=== PATIENT | male | born 1970 | race Hispanic/Latino ===

== ENCOUNTER 2017-02-04 10:21 | Observation (INO) | payer SELFPAY ==
[~2017-02-04] VITALS: Ht 154.9 cm; Wt 84.5 kg
[~2017-02-04 10:21] MED LIST: CIPROFLOXACN500 MG PO; TOBREX OPTH DROP5 ML OS; TYLENOL500 MG OR
[2017-02-04 10:52] LABS: HEMATOCRIT 40.4 % (39.0-50.0); HEMOGLOBIN 15.3 g/dl (14.0-18.0); IMMATURE GRANULOCYTES 0.4 % (0.0-1.0); MEAN CELL VOLUME 91.4 fL CALC (80.0-100.0); MEAN CORPUSCULAR HGB 34.6 pG CALC (26.0-32.0); MEAN CORPUSCULAR HGB CONC 37.9 g/L CALC (32.0-36.0); NEUT# 3.64 thou/uL (1.82-7.42); RED BLOOD COUNT 4.42 mill/uL (4.70-6.10); RED CELL DISTRI WIDTH 11.9 % (11.5-15.5)
[2017-02-04 11:16] LABS: ALBUMIN 4.3 g/dL (3.2-5.0); ALKALINE PHOSPHATASE 73 u/l (38-126); ANION GAP 16 (6-22 (CALC)); BUN 11 mg/dL (9-20); BUN/CREATININE RATIO 20 (12-20 (CALC)); CALCIUM 8.7 mg/dL (8.4-10.2); CARBON DIOXIDE 25 mmol/l (22-30); CHLORIDE 103 mmol/l (95-108); CREATININE 0.6 mg/dL (0.7-1.3); GFR > 60 ML/MIN (>=60 (CALC)); GFR FOR AFR.AMER. > 60 ML/MIN (>=60 (CALC)); GLUCOSE 107 mg/dL (75-110); POTASSIUM 3.6 mmol/l (3.5-5.1); SGOT/AST 62 u/l (17-59); SGPT/ALT 64 u/l (21-72); SODIUM 140 mmol/l (137-146); TOTAL PROTEIN 7.9 g/dL (6.3-8.2)
[2017-02-04 11:26] LABS: MYOGLOBIN 23 ng/mL (0 - 121)
[2017-02-04 14:27] VITALS: BP 123/77
[2017-02-04 16:00] VITALS: BP 110/76
[2017-02-04 19:05] VITALS: BP 120/75
[2017-02-05 00:10] VITALS: BP 119/74
[2017-02-05 04:59] VITALS: BP 117/82
[2017-02-05 08:00] VITALS: BP 114/73
[2017-02-05] MEDS ORDERED: ASPIRIN LOW DOS81 MG PO (08:28)
== END 2017-02-05 11:40 | disposition home or self-care (01) | DRG 313 ==
LOC: ENPENDDIS → ED 10:21 → ED-I 11:42 → ED 12:19 → MS2 12:20
PROVIDERS: Emergency Medicine; ADMIT Internal Medicine; ATTEND Internal Medicine
DX: R07.2 Precordial pain (principal); E80.6 Other disorders of bilirubin metabolism; R74.0 Nonspecific elevation of levels of transaminase and lactic acid dehydrogenase [LDH]
CPT/HCPCS: G0378

== ENCOUNTER 2019-04-06 23:13 | Emergency (ER) | payer SELFPAY ==
[~2019-04-06] VITALS: Ht 162.6 cm; Wt 90.0 kg
[~2019-04-06 23:13] MED LIST changes: +ASPIRIN LOW DOS81 MG PO
[2019-04-06 23:54] LABS: URINE BILIRUBIN - DIPSTICK NEGATIVE (NEGATIVE); URINE BLOOD DIPSTICK TRACE-INTACT (NEGATIVE); URINE COLOR YELLOW; URINE GLUCOSE - DIPSTICK NEGATIVE (NEGATIVE); URINE KETONE NEGATIVE (NEGATIVE); URINE NITRITE - DIPSTICK NEGATIVE (Negative); URINE PH 6.5 (4.5-8.0); URINE PROTEIN - DIPSTICK NEGATIVE (NEG-TRACE); URINE UROBILINOGEN - DIPSTICK 0.2 E.U./dL (0.2)
[2019-04-06 23:56] LABS: URINE LEUK ESTERASE SMALL (NEGATIVE)
[2019-04-07 00:07] LABS: ALBUMIN 4.1 g/dL (3.2-5.0); ALKALINE PHOSPHATASE 79 u/l (38-126); ANION GAP 13 (6-22 (CALC)); BILIRUBIN, TOTAL 3.3 mg/dL (0.0-1.4); BUN 6 mg/dL (9-20); BUN/CREATININE RATIO 11 (12-20 (CALC)); CARBON DIOXIDE 26 mmol/l (22-30); CHLORIDE 105 mmol/l (95-108); CREATININE 0.5 mg/dL (0.7-1.3); GFR > 60 ML/MIN (>=60 (CALC)); GFR FOR AFR.AMER. > 60 ML/MIN (>=60 (CALC)); LIPASE 92 u/l (23-300); POTASSIUM 3.4 mmol/l (3.5-5.1); SGOT/AST 60 u/l (17-59); SODIUM 141 mmol/l (137-146); TOTAL PROTEIN 7.6 g/dL (6.3-8.2)
[2019-04-07 00:09] LABS: AMYLASE < 30 u/l (30-110)
[2019-04-07 00:11] LABS: URINE RBC 0-2 RBC/hpf (0-5)
[2019-04-07 00:17] LABS: HEMATOCRIT 38.3 % (39.0-50.0); HEMOGLOBIN 14.3 g/dl (14.0-18.0); IMMATURE GRANULOCYTES 0.4 % (0.0-5.0); MEAN CELL VOLUME 93.9 fL CALC (80.0-100.0); MEAN CORPUSCULAR HGB CONC 37.3 g/L CALC (32.0-36.0); NEUT# 9.81 thou/uL (1.82-7.42); RED BLOOD COUNT 4.08 mill/uL (4.70-6.10); RED CELL DISTRI WIDTH 12.5 % (11.5-15.5)
[2019-04-07] MEDS ORDERED: LOMOTIL2.5 MG PO (01:20)
[2019-04-07 01:37] VITALS: BP 121/63
== END 2019-04-07 01:45 | disposition home or self-care (01) | DRG 392 ==
LOC: ED 23:13
PROVIDERS: Family Medicine
DX: R10.33 Periumbilical pain (principal); R19.7 Diarrhea, unspecified; R74.8 Abnormal levels of other serum enzymes; R50.9 Fever, unspecified; R51 Headache; R11.0 Nausea

== ENCOUNTER 2020-04-13 10:47 | Inpatient (IN) | payer SELFPAY ==
[~2020-04-13] VITALS: Ht 165.1 cm; Wt 82.2 kg
[~2020-04-13 10:47] MED LIST changes: +LOMOTIL2.5 MG PO
--- NOTE | 2020-04-13 11:00 | NUR ---
PT CHANGED TO GOWN. MONITORS PLACED. BLOCK SAWYER PRESENT PT REPORTS ABDOMINAL PAIN FOR TWO DAYS. PT AO X 3. SKIN PINK WARM AND DRY.
--- NOTE | 2020-04-13 11:30 | NUR ---
PT VOIDED 50 ML CLEAR YELLOW URINE. SPECIMEN SENT TO LAB
--- NOTE | 2020-04-13 11:36 | NUR ---
PT MEDICATED FOR NAUSEA AND PAIN
[2020-04-13 11:42] LABS: URINE BILIRUBIN - DIPSTICK NEGATIVE (NEGATIVE); URINE BLOOD DIPSTICK TRACE-INTACT (NEGATIVE); URINE COLOR YELLOW; URINE GLUCOSE - DIPSTICK NEGATIVE (NEGATIVE); URINE KETONE NEGATIVE (NEGATIVE); URINE LEUK ESTERASE NEGATIVE (NEGATIVE); URINE NITRITE - DIPSTICK NEGATIVE (Negative); URINE PROTEIN - DIPSTICK 30 mg/dL (NEG-TRACE); URINE SPECIFIC GRAVITY 1.025; URINE UROBILINOGEN - DIPSTICK 0.2 E.U./dL (0.2)
[2020-04-13 11:46] LABS: HEMATOCRIT 40.5 % (39.0-50.0); HEMOGLOBIN 14.8 g/dl (14.0-18.0); IMMATURE GRANULOCYTES 0.4 % (0.0-5.0); MEAN CORPUSCULAR HGB 35.1 pG CALC (26.0-32.0); MEAN CORPUSCULAR HGB CONC 36.5 g/dL CAL (32.0-36.0); NEUT# 5.91 thou/uL (1.82-7.42); RED BLOOD COUNT 4.22 mill/uL (4.70-6.10); RED CELL DISTRI WIDTH 11.9 % (11.5-15.5)
[2020-04-13 11:59] LABS: ALBUMIN 4.1 g/dL (3.2-5.0); ALKALINE PHOSPHATASE 67 u/l (38-126); AMYLASE 34 u/l (30-110); BUN 7 mg/dL (9-20); BUN/CREATININE RATIO 12 (12-20 (CALC)); CARBON DIOXIDE 22 mmol/l (22-30); CHLORIDE 98 mmol/l (95-108); CREATININE 0.6 mg/dL (0.7-1.3); GFR > 60 ML/MIN (>=60 (CALC)); GFR FOR AFR.AMER. > 60 ML/MIN (>=60 (CALC)); LIPASE 114 u/l (23-300); SGOT/AST 102 u/l (17-59); TOTAL PROTEIN 8.2 g/dL (6.3-8.2)
[2020-04-13 12:02] LABS: ANION GAP 15 (6-22 (CALC)); BILIRUBIN, TOTAL 1.3 mg/dL (0.0-1.4); POTASSIUM 4.1 mmol/l (3.5-5.1); SODIUM 131 mmol/l (137-146)
--- NOTE | 2020-04-13 12:36 | NUR ---
PT RESTING ON STRETCHER. AWAITING RESULTS
[2020-04-13 13:21] LABS: URINE SQUAMOUS EPITHELIAL CELL FEW EPI/hpf (0-FEW)
--- NOTE | 2020-04-13 13:36 | NUR ---
PT RESTING ON STRETCHER AWAITING RESULTS
[2020-04-13 13:54] LABS: ACT PARTIAL THROMBO TIME 31.2 SECONDS (20.0-32.5); INTERNATIONAL NORMALIZED RATIO 1.1 RATIO (0.7-1.3); PROTHROMBIN TIME 11.2 SECONDS (9.0-12.5)
--- NOTE | 2020-04-13 14:59 | NUR ---
PT RESTING ON STRETCHER AWAITING ADMISSION
--- NOTE | 2020-04-13 15:38 | NUR ---
REPORT GIVEN TO ERIN JACQUES
--- NOTE | 2020-04-13 15:38 | NUR ---
REPORT REC FROM Rosa Maria SHEEHAN RN
--- NOTE | 2020-04-13 15:50 | NUR ---
PT TAKEN VIA STRETCHER, O2 AND TELEMETRY IN PLACE TO MED SURG
[2020-04-13 16:05] VITALS: BP 139/79
--- NOTE | 2020-04-13 16:05 | NUR ---
PT ARRIVED TO [facility] ACCOMPANIED BY ASAF JACQUES. PT A&O X3. PT DENIES ANY CURRENT ABD PAIN BUT C/O OF A SLIGHT HEADACHE. O2 VIA NC @ 1.5 L. PT ADMITS TO HAVING A NON-PRODUCTIVE COUGH X3 DAYS. PT DENIES HAVING ANY CONTACT WITH SOMEONE WHO HAS BEEN POSITIVE FOR COVID-19. EXPLAINED TO PT REASONING BEHIND ISOLATION PRECAUTIONS. ORIENTED PT TO ROOM. WISAM POLK APPLIED. ASSESSMENT COMPLETED. DISCUSSED POC. CALL LIGHT IN REACH. CONTINUE TO MONITOR.
[2020-04-13 19:10] VITALS: BP 113/69
[2020-04-13 23:46] VITALS: BP 118/72
[2020-04-14 04:15] VITALS: BP 133/75
--- NOTE | 2020-04-14 06:35 | NUR ---
pt had tempt during the night. was notified in the er and new order for tylenol. medication was administered and effective to lower tempt. resident denies pain and discomfort. ice was applied to areas of body to lower tempt as well and helpful. tolerating food and fluids well. Normal saline running at 75ml/hr. will continue to observe
--- NOTE | 2020-04-14 07:19 | NUR ---
RECHECKED TEMPT AND 99.9 ORALLY. RESIDENT DENIES PAIN OR DISCOMFORT WHEN ASKED. SHOWER GIVEN THIS AM AND RESIDENT TOLERATED WELL. NORMAL SALINE CONTINUES TO RUN AT 75ML/HR AND TOLERATING WELL. WILL CONTINUE TO OBSERVE.
[2020-04-14 07:57] VITALS: BP 113/72
--- NOTE | 2020-04-14 07:57 | NUR ---
PT RESTING IN BED, NO SIGNS OF DISTRESS NOTED, RESP EVEN AND UNLABORED. PT ALERT AND ORIENTED X3, ZAMBIAN SPEAKING ONLY, FLIGHT TEST SUPERVISOR SPEAKS ZAMBIAN. DISCUSSED POC, ASSESSMENT COMPLETED, CALL LIGHT IN REACH,CONTINUE TO MONITOR.
[2020-04-14 10:46] VITALS: BP 135/87
[2020-04-14 10:49] LABS: HEMATOCRIT 39.6 % (39.0-50.0); HEMOGLOBIN 14.2 g/dl (14.0-18.0); IMMATURE GRANULOCYTES 0.4 % (0.0-5.0); MEAN CELL VOLUME 96.8 fL CALC (80.0-100.0); MEAN CORPUSCULAR HGB 34.7 pG CALC (26.0-32.0); MEAN CORPUSCULAR HGB CONC 35.9 g/dL CAL (32.0-36.0); NEUT# 13.13 thou/uL (1.82-7.42); RED BLOOD COUNT 4.09 mill/uL (4.70-6.10); RED CELL DISTRI WIDTH 11.9 % (11.5-15.5)
[2020-04-14 11:08] LABS: ANION GAP 12 (6-22 (CALC)); BUN 6 mg/dL (9-20); BUN/CREATININE RATIO 10 (12-20 (CALC)); CARBON DIOXIDE 25 mmol/l (22-30); CHLORIDE 99 mmol/l (95-108); CREATININE 0.6 mg/dL (0.7-1.3); GFR > 60 ML/MIN (>=60 (CALC)); GFR FOR AFR.AMER. > 60 ML/MIN (>=60 (CALC)); POTASSIUM 3.7 mmol/l (3.5-5.1); SODIUM 133 mmol/l (137-146)
--- NOTE | 2020-04-14 11:37 | NUR ---
PT RESTING IN BED WITH BLANKETS PT C/O BEING COLD. TEMP 101.8, BLANKETS REMOVED AND MEDICATED WITH TYLENOL. CALL LIGHT IN REACH,CONTINUE TO MONITOR.
--- NOTE | 2020-04-14 12:05 | NUR ---
MILLING OPERATOR IN ROOM WITH PT DISCUSSED POC, H&P. CALL LIGHT IN REACH,CONTINUE TO MONITOR.
[2020-04-14 15:17] VITALS: BP 100/66
--- NOTE | 2020-04-14 16:25 | NUR ---
PT RESTING IN BED, NO SIGNS OF DISTRESS NOTED, RESP EVEN AND UNLABORED. PT VOICES NO NEEDS OR COMPLAINTS AT THIS TIME. CALL LIGHT IN REACH,CONTINUE TO MONITOR.
[2020-04-14 18:36] VITALS: BP 117/67
--- NOTE | 2020-04-14 19:20 | NUR ---
REPORT FROM MAMTA ADHIKARI. PT RESTING IN BED WITH EYES CLOSED. NO APPARENT DISTRESS NOTED. AFEBRILE AT THIS TIME. PT DENIES ANY PAIN OR DISCOMFORT. SAM MARRERO IN ROOM TO TRANSLATE. DISCUSSED POC. PT VERBALIZED UNDERSTANDING. IV FLUIDS INFUSING WITHOUT DIFFICULTY. MANAGER CRITICAL CARE UNIT IN PLACE. CALL LIGHT WITHIN REACH. WILL CONTINUE TO MONITOR.
--- NOTE | 2020-04-14 21:17 | NUR ---
PT MEDICATED WITH PO APAP FOR HEADACHE 5-10. NO APPARENT DISTRESS NOTED. PT DENIES ANY SOB OR ANY OTHER CURRENT NEEDS. WILL CONTINUE TO MONITOR.
[2020-04-14 23:45] VITALS: BP 123/83
--- NOTE | 2020-04-14 23:45 | NUR ---
PT RESTING IN BED. NO APPARENT DISTRESS NOTED. PT DENIES ANY PAIN OR DISCOMFORT. BLANKET PROVIDED UPON REQUEST. VSS. CALL LIGHT WITHIN REACH. WILL CONTINUE TO MONITOR.
--- NOTE | 2020-04-15 | NUR ---
PATIENT RESTING IN BED, BREATHING EVEN UNLABORED, EASY TO AROUSED BP 90/62
--- NOTE | 2020-04-15 03:22 | NUR ---
ASSISTED PT OOB TO BATHROOM. PT HAD BM AT THIS TIME. BACK IN BED. NO APPARENT DISTRESS NOTED. CALL LIGHT WITHIN REACH. WILL CONTINUE TO MONITOR.
[2020-04-15 04:55] VITALS: BP 125/74
[2020-04-15 06:09] LABS: HEMATOCRIT 36.6 % (39.0-50.0); HEMOGLOBIN 13.4 g/dl (14.0-18.0); IMMATURE GRANULOCYTES 1.2 % (0.0-5.0); MEAN CELL VOLUME 95.8 fL CALC (80.0-100.0); MEAN CORPUSCULAR HGB 35.1 pG CALC (26.0-32.0); MEAN CORPUSCULAR HGB CONC 36.6 g/dL CAL (32.0-36.0); NEUT# 13.21 thou/uL (1.82-7.42); RED BLOOD COUNT 3.82 mill/uL (4.70-6.10); RED CELL DISTRI WIDTH 11.9 % (11.5-15.5)
[2020-04-15 06:23] LABS: ALBUMIN 3.3 g/dL (3.2-5.0); ALKALINE PHOSPHATASE 77 u/l (38-126); ANION GAP 12 (6-22 (CALC)); BILIRUBIN, TOTAL 1.1 mg/dL (0.0-1.4); BUN 6 mg/dL (9-20); BUN/CREATININE RATIO 11 (12-20 (CALC)); C-REACTIVE PROTEIN 8.5 mg/dL (0-0.9); CARBON DIOXIDE 22 mmol/l (22-30); CHLORIDE 102 mmol/l (95-108); CREATININE 0.5 mg/dL (0.7-1.3); GFR > 60 ML/MIN (>=60 (CALC)); GFR FOR AFR.AMER. > 60 ML/MIN (>=60 (CALC)); POTASSIUM 3.9 mmol/l (3.5-5.1); SGOT/AST 48 u/l (17-59); SODIUM 132 mmol/l (137-146)
[2020-04-15 08:10] VITALS: BP 128/79
--- NOTE | 2020-04-15 08:10 | NUR ---
ASSESSMENT IS COMPLTED: IV SITE IS FREE FROM REDNESS OR EDEMA. HR IS REG,PULSES ARE STRONG X4, ABD IS SOFT WITH ACTIVE BS. PT C/O HEADACHE. BREATH SOUNDS ARE CLEAR,BILATERALLY. CONTINUE TO OSBERVE AND MONITOR. TELE MONITOR IN PLACE.
--- NOTE | 2020-04-15 09:40 | NUR ---
GAVE PT TYLENOL FOR A HEADACHE. CALLED HE LEES PT ASKING QUESTIONS. : INQUIRED IF HE WAS GOING HOME? EXPLAINED DR WAS MAKING ROUNDS GAVE MEDICATION FOR HEADACHE AND LOW FEVER.
[2020-04-15 11:17] VITALS: BP 128/77
--- NOTE | 2020-04-15 12:20 | NUR ---
PT IV CAME OUT, ATTEMPTED TO RESTART UNABLE. REPLACED BY Melina ADHIKARI. WITH 22 IN RAC. PT TOLERATED WELL. CONTINUE TO OBSERVE AND MONITOR.
[2020-04-15 16:12] VITALS: BP 113/76
--- NOTE | 2020-04-15 16:45 | NUR ---
PT HAS BEEN RELAXING IN BED WITH NO DISTRESS NOTED. IV SITE IS FREE FROM REDNESS OR EDEMA.
--- NOTE | 2020-04-15 19:00 | NUR ---
RECEIVED REPORT FROM NURSE PEREZ PATIENT SITTING IN BED, HOOKED TO O2 @ 1.5 LPM VIA NC, BREATHING EVEN AND UNLABORED, CALL LIGHT AT REACH.
[2020-04-15 19:08] VITALS: BP 140/85
--- NOTE | 2020-04-15 21:00 | NUR ---
PATIENT ALERT ORIENTED, ABLE TO MAKE NEEDS KNONW, WITH ONGOING IV NS @ 75 CC/HR INFUSING WELL ON RAC, REMAINS ON TELE SR 91, LBM 04/15 REMAINS ON O2 @ 1.5 LPM VIA NC, BREATHING EVEN UNLABORED, CALL LIGHT AT REACH.
[2020-04-15 23:50] VITALS: BP 121/86
[2020-04-16] VITALS (7 sets, daily range): BP systolic 131–162; BP diastolic 76–90
--- NOTE | 2020-04-16 00:50 | NUR ---
PATIENT APPEARS TO BE SLEEPING WITH EYES CLOSED, BREATHING EVEN AND UNLABORED, CALL LIGHT AT REACH.
--- NOTE | 2020-04-16 03:52 | NUR ---
PATIENT RESTING IN BED BREATHING EVEN AND UNLABORED. NO DISCOMFORTS NOTED AT THIS TIME, CALL LIGHT WITHIN REACH.
[2020-04-16 05:55] LABS: HEMOGLOBIN 13.6 g/dl (14.0-18.0); IMMATURE GRANULOCYTES 0.8 % (0.0-5.0); MEAN CELL VOLUME 96.9 fL CALC (80.0-100.0); MEAN CORPUSCULAR HGB 34.7 pG CALC (26.0-32.0); MEAN CORPUSCULAR HGB CONC 35.8 g/dL CAL (32.0-36.0); NEUT# 6.37 thou/uL (1.82-7.42); RED BLOOD COUNT 3.92 mill/uL (4.70-6.10); RED CELL DISTRI WIDTH 12.3 % (11.5-15.5)
[2020-04-16 06:27] LABS: ALBUMIN 3.2 g/dL (3.2-5.0); ALKALINE PHOSPHATASE 69 u/l (38-126); ANION GAP 13 (6-22 (CALC)); BILIRUBIN, TOTAL 0.8 mg/dL (0.0-1.4); BUN 4 mg/dL (9-20); BUN/CREATININE RATIO 11 (12-20 (CALC)); C-REACTIVE PROTEIN 6.2 mg/dL (0-0.9); CARBON DIOXIDE 21 mmol/l (22-30); CHLORIDE 105 mmol/l (95-108); CREATININE 0.4 mg/dL (0.7-1.3); GFR > 60 ML/MIN (>=60 (CALC)); GFR FOR AFR.AMER. > 60 ML/MIN (>=60 (CALC)); POTASSIUM 3.8 mmol/l (3.5-5.1); SGOT/AST 55 u/l (17-59); SODIUM 135 mmol/l (137-146); TOTAL PROTEIN 6.9 g/dL (6.3-8.2)
--- NOTE | 2020-04-16 08:30 | NUR ---
SPOKE WITH [facility]. INTERPETED FOR PT. INFORMED OF ASSESSMENT AND MEALS. IV SITE IS FREE FROM REDNESS OR EDEMA. HR IS REG,PULSES ARE STRONG X4, ABD IS SOFT WITH ACTIVE BS. BREATH SOUNDS ARE CLEAR,BILATERALLY, O2 @ 1.5LITERS WITH NC. TELE MONITOR IN PLACE. CONTINUE TO OSBERVE AND MONITOR.
--- NOTE | 2020-04-16 12:45 | NUR ---
PT HAS BEEN RELAXING IN BED WITH NO DISTRESS NOTED. HAD MYDALIS INQUIRE HOW MANY TIMES USED THE BATHROOM FOR BOWEL. STATED" 3 TIMES UNTIL HE ATE THEN STOPPED" EXPLAINED RE: ANTIBIOTICS VERBALIZED UNDERSTANDING.
--- NOTE | 2020-04-16 14:30 | NUR ---
RICCI LEES INQUIRE WITH PT RE: FOR SUPPER AND BREAKFAST. PT THEN ASKED "AM I GOING HOME". TRIED TO EXPLAIN RE: FEVER AND LAB NUMBERS. CONTINUE TO OSBERVE AND MONITOR.
--- NOTE | 2020-04-16 16:45 | NUR ---
PT IS RELAXING IN BED WITH NO DISTRESS NOTED.
--- NOTE | 2020-04-16 19:00 | NUR ---
RECEIVED REPORT FROM NURSE PEREZ PATIENT RESTING IN BED, WATCHING TV BREATHING SHALLOW UNLABORED, CALL LIGHT AT REACH.
--- NOTE | 2020-04-16 23:52 | NUR ---
PATIENT VOMITED X 1 50 CC, FOOD CONTENT, PATIENT CURRENTLY RESTING IN BED EYES CLOSEED, BREATHING EVEN AND UNLABORED, DENIES PAIN OR DISCOMFORT AT THIS TIME.
--- NOTE | 2020-04-17 | NUR ---
PATIENT APPEARS TO BE SLEEPING WITH EYES CLOSED, REMAINS ON TELE SR 92, NO VOMITING EPISODE AT THIS TIME, EVEN AND UNLABORED RESPIRATION CALL LIGHT AT REACH.
[2020-04-17 04:25] VITALS: BP 131/79
--- NOTE | 2020-04-17 05:21 | NUR ---
PATIENT AWAKE AT THIS TIME, WATCHING TV, NOT IN DISTRESS REMAINS ON O2 @ 1.5LPM, BREATHING UNLABORED CALL LIGHT AT REACH.
[2020-04-17 09:12] VITALS: BP 138/85
--- NOTE | 2020-04-17 09:15 | NUR ---
ASSESSMENT IS COMPLETED: IV SITE IS FREE FROM REDNESS OR EDEMA. HR IS REG,PULSES ARE STRONG X4, ABD IS SOFT WITH ACTIVE BS., BREATH SOUNDS ARE CLEAR,BILATERALLY TELE MONITOR IN PLACE. ABD IS DISTENDED BUT SOFT. SPOKE WITH HE. INQUIRING IF HE VOMITED ANY MORE , STATED:"NO". SMALL AMOUNT OF PAIN. CONTINUE TO OSBERVE AND MONITOR.
--- NOTE | 2020-04-17 11:20 | NUR ---
HAD HE LEES CALL PT AND INFORM OF NEEDING A STOOL SAMPLE TO SEND FOR TESTING.
[2020-04-17 11:38] VITALS: BP 130/81
--- NOTE | 2020-04-17 12:45 | NUR ---
PT IS RELAXING IN BED WITH NO DISTRESS NOTED. IV SITE IS FREE FROM REDNESS OR EDEMA. CONITNUE TO OSBERVE AND MONITOR.
--- NOTE | 2020-04-17 15:15 | NUR ---
IDALIA JACQUES CLEANED HIS ROOM. WIPED EVERYTHING DOWN
[2020-04-17 16:25] VITALS: BP 139/82
--- NOTE | 2020-04-17 16:48 | NUR ---
PT HAS BEEN RELAXING IN BED WITH NO DISTRESS NOTED. IV SITE IS FREE FROM REDNESS OR EDEMA
--- NOTE | 2020-04-17 19:15 | NUR ---
REPORT FROM CHRIS ADHIKARI. PT SITTING UP IN BED. ALERT AND ORIENTED. PT DENIES ANY PAIN OR DISCOMFORT. NO APPARENT RESPIRATORY DISTRESS NOTED. IV SITE APPEARS HEALTHY. DISCUSSED POC. PT VERBALIZED UNDERSTANDING. NO CURRENT WANTS OR NEEDS AT THIS TIME. CALL LIGHT WITHIN REACH. WILL CONTINUE TO MONITOR.
--- NOTE | 2020-04-17 20:53 | NUR ---
PT MEDICATED ORDERED. NO APPARENT DISTRESS NOTED. JUICE AND WATER PROVIDED UPON REQUEST. CALL LIGHT WITHIN REACH. WILL CONTINUE TO MONITOR.
[2020-04-17 23:55] VITALS: BP 136/85
--- NOTE | 2020-04-18 00:50 | NUR ---
PT RESTING IN BED. NO APPARENT DISTRESS NOTED. CALL LIGHT WITHIN REACH. WILL CONTINUE TO MONITOR.
--- NOTE | 2020-04-18 03:39 | NUR ---
PT RESTING IN BED. NO APPARENT DISTRESS NOTED.CALL LIGHT WITHIN REACH. WILL CONTINUE TO MONITOR.
[2020-04-18 04:05] VITALS: BP 142/87
[2020-04-18 05:36] LABS: BASO% 1 % (0-3); EOS% 7 % (0-8); HEMATOCRIT 33.3 % (39.0-50.0); HEMOGLOBIN 12.2 g/dl (14.0-18.0); IMMATURE GRANULOCYTES 3.2 % (0.0-5.0); LYMPH% 19 % (15-41); MEAN CELL VOLUME 95.4 fL CALC (80.0-100.0); MEAN CORPUSCULAR HGB CONC 36.6 g/dL CAL (32.0-36.0); MONO% 10 % (2-13); NEUT# 4.79 thou/uL (1.82-7.42); NEUT% 60 % (42-76); RED BLOOD COUNT 3.49 mill/uL (4.70-6.10); RED CELL DISTRI WIDTH 12.2 % (11.5-15.5)
[2020-04-18 05:43] LABS: PLATELET COUNT 370 thou/uL (130-400)
[2020-04-18 06:18] LABS: ALBUMIN 2.9 g/dL (3.2-5.0); ALKALINE PHOSPHATASE 56 u/l (38-126); ANION GAP 10 (6-22 (CALC)); BILIRUBIN, TOTAL 0.7 mg/dL (0.0-1.4); BUN 3 mg/dL (9-20); BUN/CREATININE RATIO 6 (12-20 (CALC)); C-REACTIVE PROTEIN 4.4 mg/dL (0-0.9); CARBON DIOXIDE 24 mmol/l (22-30); CHLORIDE 104 mmol/l (95-108); CREATININE 0.5 mg/dL (0.7-1.3); GFR > 60 ML/MIN (>=60 (CALC)); GFR FOR AFR.AMER. > 60 ML/MIN (>=60 (CALC)); POTASSIUM 3.2 mmol/l (3.5-5.1); SGOT/AST 61 u/l (17-59); SODIUM 135 mmol/l (137-146); TOTAL PROTEIN 6.5 g/dL (6.3-8.2)
[2020-04-18 08:24] VITALS: BP 133/80
--- NOTE | 2020-04-18 08:24 | NUR ---
PT SITTING IN BED. A&O X3. NO DISTRESS NOTED. O2 VIA NC @1.5L IN PLACE. PT DENIES ANY PAIN AT THIS TIME. INSTRUCTIONS ON NEEDED STOOL SAMPLE GIVEN PT VERBALIZED UNDERSTANDING. ASSESSMENT COMPLETED. DISCUSSED POC. CALL LIGHT IN REACH. CONTINUE TO MONITOR.
[2020-04-18 12:05] VITALS: BP 128/82
--- NOTE | 2020-04-18 14:24 | NUR ---
PT SITTING IN BED WATCHING TV. NO DISTRESS OR NEEDS AT THIS TIME. CALL LIGHT IN REACH. CONTINUE TO MONITOR.
[2020-04-18 15:39] VITALS: BP 131/86
--- NOTE | 2020-04-18 17:50 | NUR ---
PT SITTING ON THE SIDE OF THE BED. NO DISTRESS OR NEEDS NOTED. CALL LIGHT IN REACH. CONTINUE TO MONITOR
--- NOTE | 2020-04-18 19:20 | NUR ---
REPORT FROM JANIS ADHIKARI. PT SITTING UP IN BED. ALERT AND ORIENTED. PT DENIES ANY PAIN OR DISCOMFORT. NO APPARENT RESPIRATORY DISTRESS NOTED. IV SITE APPEARS HEALTHY WITH IV FLUIDS INFUSING. DISCUSSED POC. PT VERBALIZED UNDERSTANDING. NO CURRENT WANTS OR NEEDS AT THIS TIME. CALL LIGHT WITHIN REACH. WILL CONTINUE TO MONITOR.
[2020-04-18 19:40] VITALS: BP 143/84
--- NOTE | 2020-04-18 21:25 | NUR ---
PT MEDICATED WITH PRN APAP FOR HEADACHE. ORANGE JUICE AND FRESH WATER PROVIDED. NO OTHER WANTS OR NEEDS. CALL LIGHT WITHIN REACH. WILL CONTINUE TO MONITOR.
[2020-04-18 23:58] VITALS: BP 141/90
--- NOTE | 2020-04-19 00:38 | NUR ---
PT RESTING IN BED WITH EYES CLOSED. NO APPARENT DISTRESS NOTED. CALL LIGHT WITHIN REACH. WILL CONTINUE TO MONITOR.
[2020-04-19 04:20] VITALS: BP 145/85
--- NOTE | 2020-04-19 04:22 | NUR ---
LABS DRAWN AT THIS TIME. PT DENIES ANY PAIN OR DISCOMFORT. NO APPARENT DISTRESS NOTED. CALL LIGHT WITHIN REACH. WILL CONTINUE TO MONITOR.
[2020-04-19 05:55] LABS: HEMATOCRIT 35.5 % (39.0-50.0); HEMOGLOBIN 13.1 g/dl (14.0-18.0); MEAN CELL VOLUME 96.7 fL CALC (80.0-100.0); MEAN CORPUSCULAR HGB 35.7 pG CALC (26.0-32.0); MEAN CORPUSCULAR HGB CONC 36.9 g/dL CAL (32.0-36.0); RED BLOOD COUNT 3.67 mill/uL (4.70-6.10); RED CELL DISTRI WIDTH 12.6 % (11.5-15.5)
[2020-04-19 06:06] LABS: ANION GAP 10 (6-22 (CALC)); BUN 3 mg/dL (9-20); BUN/CREATININE RATIO 8 (12-20 (CALC)); CARBON DIOXIDE 24 mmol/l (22-30); CHLORIDE 105 mmol/l (95-108); CREATININE 0.4 mg/dL (0.7-1.3); GFR > 60 ML/MIN (>=60 (CALC)); GFR FOR AFR.AMER. > 60 ML/MIN (>=60 (CALC)); POTASSIUM 3.4 mmol/l (3.5-5.1); SODIUM 136 mmol/l (137-146)
[2020-04-19 08:08] VITALS: BP 130/81
--- NOTE | 2020-04-19 08:08 | NUR ---
PT SITTING ON THE SIDE OF THE BED EATING BREAKFAST. A&O X3. O2 VIA NC @1.[address] O2 REMOVED, PT MAINTAINING 94-95 % RA. O2 LEFT AT BEDSIDE, PT INSTRUCTED TO CALL IF HE FELT SOB SO O2 COULD BE PLACED BACK ON. WILL RE-EVALUATE O2 VIA RA. EDEMA NOTED TO BILATERAL FEET/ANKLES. NO OTHER NEEDS AT THIS TIME. ASSESSMENT COMPLETED. ISOLATION PRECAUTIONS IN PLACE. DISCUSSED POC. CALL LIGHT IN REACH. CONTINUE TO MONITOR
[2020-04-19 11:07] VITALS: BP 134/91
--- NOTE | 2020-04-19 13:46 | NUR ---
PT SITTING ON THE SIDE OF THE BED. NO DISTRESS OR NEEDS AT THIS TIME. CALL LIGHT IN REACH. CONTINUE TO MONITOR.
[2020-04-19 15:10] VITALS: BP 137/87
--- NOTE | 2020-04-19 17:20 | NUR ---
PT SITTING ON THE SIDE OF THE BED. NO DISTRESS OR NEEDS AT THIS TIME. CALL LIGHT IN REACH. CONTINUE TO MONITOR
[2020-04-19 19:15] VITALS: BP 124/83
--- NOTE | 2020-04-19 21:52 | NUR ---
PT MEDICATED ORDERS PROVIDE AND ASSESSMENT COMPLETED AT THIS TIME. NO S/O DISTRESS NOTED. PT DENIES ANY NEEDS AT THIS TIME, BUT INSTRUCTED PT TO CALL NEEDS ARISE. VERBALIZED UNDERSTANDING. CALL LIGHT IN HAND.
[2020-04-19 23:17] VITALS: BP 113/76
[2020-04-20 04:30] VITALS: BP 109/66
--- NOTE | 2020-04-20 05:10 | NUR ---
BLOOD DRAWN FOR LABS OBTAINED. NO S/O DISTRESS NOTED. PT DENIES ANY NEEDS.
[2020-04-20 06:10] LABS: HEMATOCRIT 36.5 % (39.0-50.0); HEMOGLOBIN 13.4 g/dl (14.0-18.0); MEAN CELL VOLUME 95.5 fL CALC (80.0-100.0); MEAN CORPUSCULAR HGB 35.1 pG CALC (26.0-32.0); MEAN CORPUSCULAR HGB CONC 36.7 g/dL CAL (32.0-36.0); RED BLOOD COUNT 3.82 mill/uL (4.70-6.10); RED CELL DISTRI WIDTH 12.5 % (11.5-15.5)
[2020-04-20 06:44] LABS: ALBUMIN 3.4 g/dL (3.2-5.0); ALKALINE PHOSPHATASE 61 u/l (38-126); ANION GAP 12 (6-22 (CALC)); BILIRUBIN, TOTAL 0.6 mg/dL (0.0-1.4); BUN 6 mg/dL (9-20); BUN/CREATININE RATIO 14 (12-20 (CALC)); C-REACTIVE PROTEIN 2.4 mg/dL (0-0.9); CARBON DIOXIDE 23 mmol/l (22-30); CHLORIDE 104 mmol/l (95-108); CREATININE 0.4 mg/dL (0.7-1.3); GFR > 60 ML/MIN (>=60 (CALC)); GFR FOR AFR.AMER. > 60 ML/MIN (>=60 (CALC)); POTASSIUM 3.8 mmol/l (3.5-5.1); SGOT/AST 52 u/l (17-59); SODIUM 136 mmol/l (137-146); TOTAL PROTEIN 7.2 g/dL (6.3-8.2)
[2020-04-20 08:35] VITALS: BP 131/84
--- NOTE | 2020-04-20 08:35 | NUR ---
ASSESSMENT IS COMPLTED: IV SITE IS FREE FROM REDNESS OR EDEMA. HR IS REG, PULSES ARE STRONG X4, ABD IS SOFT WITH ACTIVE BS. BREATH SOUNDS ARE CLEAR, BILATERALLY, NO C/O SOB, TELE MONITOR IN PLACE. HAD 1 BM FORMED THIS AM.
[2020-04-20 10:37] VITALS: BP 109/75
--- NOTE | 2020-04-20 12:00 | NUR ---
PT HAS BEEN RELAXING IN BED WITH NO DISTRESS NOTED. IV SITE IS FREE FROM REDNESS OR EDEMA.
--- NOTE | 2020-04-20 13:30 | NUR ---
IV SITE DISCONTINUED CATHETER INTACT NO REDNESS OR EDEMA. DISCHARGE INSTRUCTIONS GIVEN AND VERBALIZED UNDERSTANDING BY JANIS GEURRA. Discharge instructions given. Patient verbalizes understanding of same. Discharged in stable condition via Wheelchair to Home with family. All belongings sent with pt.
--- NOTE | 2020-04-20 14:47 | NUR ---
ALL THE TEACHING WERE SENT IN [place] FOR PT TO READ AND UNDERSTAND.
== END 2020-04-20 13:48 | disposition home or self-care (01) | DRG 177 ==
LOC: ED 10:47 → ED-I 13:48 → ED 14:17 → ED-I 14:18 → MS2 14:30
PROVIDERS: Nurse Practitioner Family; ADMIT Internal Medicine; ATTEND Internal Medicine
DX: U07.1 COVID-19 (principal); J12.89 Other viral pneumonia; R09.02 Hypoxemia; E87.6 Hypokalemia
CPT/HCPCS: J1650; Q9967

== ENCOUNTER 2023-02-11 20:25 | Inpatient (IN) | payer OTHER ==
[2023-02-11] VITALS (8 sets, daily range): BP systolic 90–103; BP diastolic 55–73
[~2023-02-11] VITALS: Ht 165.1 cm; Wt 94.0 kg
[2023-02-11 20:56] LABS: BASO% 0.1 % (0-3); IMMATURE GRANULOCYTES 0.5 % (0.0-5.0); MEAN CELL VOLUME 95.8 fL CALC (80.0-100.0); MEAN CORPUSCULAR HGB CONC 36.6 g/dL CAL (32.0-36.0); MONO% 1.2 % (2-13); NEUT# 11.62 thou/uL (1.82-7.42); NEUT% 94.2 % (42-76); RED BLOOD COUNT 4.51 mill/uL (4.70-6.10); RED CELL DISTRI WIDTH 12.7 % (11.5-15.5)
[2023-02-11 21:02] LABS: HEMATOCRIT 43.2 % (39.0-50.0); HEMOGLOBIN 15.8 g/dl (14.0-18.0)
[2023-02-11 21:13] LABS: BUN 13 mg/dL (9-20); CHLORIDE 105 mmol/l (95-108); SODIUM 140 mmol/l (137-146)
[2023-02-11 21:19] LABS: ALBUMIN 4.4 g/dL (3.2-5.0); ALKALINE PHOSPHATASE 160 u/l (38-126); ANION GAP 22 (6-22 (CALC)); BILIRUBIN, TOTAL 3.7 mg/dL (0.2-1.3); BUN/CREATININE RATIO 9 (12-20 (CALC)); CARBON DIOXIDE 16 mmol/l (22-30); CREATININE 1.4 mg/dL (0.7-1.3); GFR FOR AFR.AMER. > 60 ML/MIN (>=60 (CALC)); GFR OTHER RACES 53 ML/MIN (>=60 (CALC)); POTASSIUM 2.9 mmol/l (3.5-5.1); SGOT/AST 111 u/l (17-59); TOTAL PROTEIN 9.2 g/dL (6.3-8.2)
[2023-02-11 22:50] LABS: URINE BLOOD DIPSTICK LARGE (NEGATIVE); URINE COLOR YELLOW; URINE KETONE TRACE mg/dL (NEGATIVE); URINE PH 5.5 (4.5-8.0); URINE PROTEIN - DIPSTICK >=300 mg/dL (NEG-TRACE); URINE SPECIFIC GRAVITY 1.025
[2023-02-11 22:57] LABS: URINE BILIRUBIN - DIPSTICK SMALL (NEGATIVE); URINE LEUK ESTERASE MODERATE (NEGATIVE); URINE NITRITE - DIPSTICK POSITIVE (Negative)
[2023-02-11 22:58] LABS: URINE GLUCOSE - DIPSTICK NEGATIVE (NEGATIVE)
[2023-02-11 23:01] LABS: URINE BACTERIA MANY hpf; URINE EPITHELIAL CELLS MODERATE EPI/hpf (0-FEW); URINE RBC 25-50 RBC/hpf (0-5); URINE WBC >100 WBC/hpf (0-5)
[2023-02-12] VITALS (141 sets, daily range): BP systolic 73–123; BP diastolic 50–84
[2023-02-12 07:54] LABS: BUN 13 mg/dL (9-20); BUN/CREATININE RATIO 17 (12-20 (CALC)); CARBON DIOXIDE 18 mmol/l (22-30); CREATININE 0.8 mg/dL (0.7-1.3); GFR FOR AFR.AMER. > 60 ML/MIN (>=60 (CALC)); GFR OTHER RACES > 60 ML/MIN (>=60 (CALC)); SGOT/AST 84 u/l (17-59); SODIUM 146 mmol/l (137-146); TOTAL PROTEIN 7.4 g/dL (6.3-8.2)
[2023-02-12 08:05] LABS: ALBUMIN 3.3 g/dL (3.2-5.0); ALKALINE PHOSPHATASE 76 u/l (38-126); ANION GAP 14 (6-22 (CALC)); CHLORIDE 118 mmol/l (95-108); POTASSIUM 3.8 mmol/l (3.5-5.1)
[2023-02-12 09:43] LABS: BASO% 0.1 % (0-3); EOS% 0.2 % (0-8); HEMATOCRIT 37.3 % (39.0-50.0); IMMATURE GRANULOCYTES 0.4 % (0.0-5.0); LYMPH% 6.6 % (15-41); MEAN CELL VOLUME 98.4 fL CALC (80.0-100.0); MEAN CORPUSCULAR HGB 34.8 pG CALC (26.0-32.0); MEAN CORPUSCULAR HGB CONC 35.4 g/dL CAL (32.0-36.0); MONO% 3.6 % (2-13); NEUT# 21.98 thou/uL (1.82-7.42); NEUT% 89.1 % (42-76); RED BLOOD COUNT 3.79 mill/uL (4.70-6.10); RED CELL DISTRI WIDTH 13.4 % (11.5-15.5)
[2023-02-12 10:01] LABS: HEMOGLOBIN 13.2 g/dl (14.0-18.0)
[2023-02-13] VITALS (51 sets, daily range): BP systolic 78–131; BP diastolic 39–86
[2023-02-13 05:45] LABS: HEMATOCRIT 36.2 % (39.0-50.0); HEMOGLOBIN 12.7 g/dl (14.0-18.0); MEAN CELL VOLUME 99.5 fL CALC (80.0-100.0); MEAN CORPUSCULAR HGB 34.9 pG CALC (26.0-32.0); MEAN CORPUSCULAR HGB CONC 35.1 g/dL CAL (32.0-36.0); RED BLOOD COUNT 3.64 mill/uL (4.70-6.10); RED CELL DISTRI WIDTH 13.9 % (11.5-15.5)
[2023-02-13 06:12] LABS: ALBUMIN 2.7 g/dL (3.2-5.0); ALKALINE PHOSPHATASE 69 u/l (38-126); ANION GAP 9 (6-22 (CALC)); BUN 12 mg/dL (9-20); BUN/CREATININE RATIO 17 (12-20 (CALC)); CARBON DIOXIDE 20 mmol/l (22-30); CHLORIDE 119 mmol/l (95-108); CREATININE 0.7 mg/dL (0.7-1.3); GFR FOR AFR.AMER. > 60 ML/MIN (>=60 (CALC)); GFR OTHER RACES > 60 ML/MIN (>=60 (CALC)); MAGNESIUM 1.5 mg/dL (1.6-2.3); POTASSIUM 3.2 mmol/l (3.5-5.1); SGOT/AST 64 u/l (17-59); SODIUM 145 mmol/l (137-146); TOTAL PROTEIN 6.1 g/dL (6.3-8.2)
[2023-02-13 06:43] LABS: BILIRUBIN, TOTAL 0.8 mg/dL (0.2-1.3)
[2023-02-14] VITALS (38 sets, daily range): BP systolic 95–147; BP diastolic 64–99
[2023-02-14 01:36] LABS: BASO% 0.4 % (0-3); EOS% 5.4 % (0-8); HEMATOCRIT 35.3 % (39.0-50.0); HEMOGLOBIN 12.6 g/dl (14.0-18.0); IMMATURE GRANULOCYTES 0.2 % (0.0-5.0); LYMPH% 23.1 % (15-41); MEAN CELL VOLUME 96.2 fL CALC (80.0-100.0); MEAN CORPUSCULAR HGB 34.3 pG CALC (26.0-32.0); MEAN CORPUSCULAR HGB CONC 35.7 g/dL CAL (32.0-36.0); MONO% 6.4 % (2-13); NEUT# 5.23 thou/uL (1.82-7.42); NEUT% 64.5 % (42-76); RED BLOOD COUNT 3.67 mill/uL (4.70-6.10); RED CELL DISTRI WIDTH 13.4 % (11.5-15.5)
[2023-02-14 01:49] LABS: ALBUMIN 2.6 g/dL (3.2-5.0); ALKALINE PHOSPHATASE 72 u/l (38-126); ANION GAP 7 (6-22 (CALC)); BILIRUBIN, TOTAL 0.7 mg/dL (0.2-1.3); BUN 5 mg/dL (9-20); BUN/CREATININE RATIO 8 (12-20 (CALC)); CARBON DIOXIDE 19 mmol/l (22-30); CHLORIDE 116 mmol/l (95-108); CREATININE 0.6 mg/dL (0.7-1.3); GFR FOR AFR.AMER. > 60 ML/MIN (>=60 (CALC)); GFR OTHER RACES > 60 ML/MIN (>=60 (CALC)); MAGNESIUM 1.8 mg/dL (1.6-2.3); SGOT/AST 56 u/l (17-59); SODIUM 140 mmol/l (137-146); TOTAL PROTEIN 5.9 g/dL (6.3-8.2)
[2023-02-15] VITALS (7 sets, daily range): BP systolic 101–124; BP diastolic 53–88
[2023-02-15 05:21] LABS: BASO% 0.3 % (0-3); EOS% 6.4 % (0-8); HEMATOCRIT 33.6 % (39.0-50.0); HEMOGLOBIN 12.4 g/dl (14.0-18.0); IMMATURE GRANULOCYTES 0.4 % (0.0-5.0); LYMPH% 28.3 % (15-41); MEAN CELL VOLUME 95.2 fL CALC (80.0-100.0); MEAN CORPUSCULAR HGB 35.1 pG CALC (26.0-32.0); MEAN CORPUSCULAR HGB CONC 36.9 g/dL CAL (32.0-36.0); MONO% 14.9 % (2-13); NEUT# 3.74 thou/uL (1.82-7.42); NEUT% 49.7 % (42-76); RED BLOOD COUNT 3.53 mill/uL (4.70-6.10); RED CELL DISTRI WIDTH 13.1 % (11.5-15.5)
[2023-02-15 05:30] LABS: BUN 3 mg/dL (9-20); BUN/CREATININE RATIO 6 (12-20 (CALC)); CHLORIDE 110 mmol/l (95-108); CREATININE 0.6 mg/dL (0.7-1.3); GFR FOR AFR.AMER. > 60 ML/MIN (>=60 (CALC)); GFR OTHER RACES > 60 ML/MIN (>=60 (CALC)); MAGNESIUM 1.6 mg/dL (1.6-2.3); POTASSIUM 3.1 mmol/l (3.5-5.1); SODIUM 138 mmol/l (137-146)
[2023-02-15 05:36] LABS: ANION GAP 8 (6-22 (CALC)); CARBON DIOXIDE 23 mmol/l (22-30)
[2023-02-16 04:18] VITALS: BP 124/79
[2023-02-16 05:34] LABS: HEMATOCRIT 36.2 % (39.0-50.0); MEAN CORPUSCULAR HGB 34.5 pG CALC (26.0-32.0); MEAN CORPUSCULAR HGB CONC 35.9 g/dL CAL (32.0-36.0); RED BLOOD COUNT 3.77 mill/uL (4.70-6.10); RED CELL DISTRI WIDTH 13.1 % (11.5-15.5)
[2023-02-16 05:55] LABS: ALKALINE PHOSPHATASE 76 u/l (38-126); ANION GAP 11 (6-22 (CALC)); BILIRUBIN, TOTAL 0.9 mg/dL (0.2-1.3); BUN 4 mg/dL (9-20); BUN/CREATININE RATIO 6 (12-20 (CALC)); CARBON DIOXIDE 26 mmol/l (22-30); CHLORIDE 107 mmol/l (95-108); CREATININE 0.6 mg/dL (0.7-1.3); GFR FOR AFR.AMER. > 60 ML/MIN (>=60 (CALC)); GFR OTHER RACES > 60 ML/MIN (>=60 (CALC)); MAGNESIUM 1.6 mg/dL (1.6-2.3); POTASSIUM 3.3 mmol/l (3.5-5.1); SGOT/AST 61 u/l (17-59); SODIUM 141 mmol/l (137-146); TOTAL PROTEIN 6.9 g/dL (6.3-8.2)
[2023-02-16 05:58] LABS: ALBUMIN 3.2 g/dL (3.2-5.0)
[2023-02-16 06:25] VITALS: BP 116/78
[2023-02-16] MEDS ORDERED: OMNICEF300 MG PO (10:36)
[2023-02-16 14:47] VITALS: BP 119/77
== END 2023-02-16 17:35 | disposition home or self-care (01) | DRG 871 ==
LOC: ED 20:25 → ED-I 02-12 → ED 02-12 00:14 → MS2 02-12 00:15 → ICU 02-12 00:15 → MS2 02-14 15:45
PROVIDERS: Emergency Medicine; Internal Medicine; ADMIT Internal Medicine; ATTEND Internal Medicine
PROC: 3E033XZ Introduction of Vasopressor into Peripheral Vein, Percutaneous Approach (ICD-10-PCS; principal; 2023-02-12)
DX: A41.51 Sepsis due to Escherichia coli [E. coli] (principal); K72.00 Acute and subacute hepatic failure without coma; R65.21 Severe sepsis with septic shock; N39.0 Urinary tract infection, site not specified; I24.8 Other forms of acute ischemic heart disease; D69.59 Other secondary thrombocytopenia; E87.6 Hypokalemia; E83.42 Hypomagnesemia; K70.9 Alcoholic liver disease, unspecified; F10.10 Alcohol abuse, uncomplicated; Y90.0 Blood alcohol level of less than 20 mg/100 ml; Z20.822 Contact with and (suspected) exposure to COVID-19
CPT/HCPCS: J3475; Q9967

== ENCOUNTER 2023-03-03 08:54 | Emergency (ER) | payer OTHER ==
[2023-03-03] VITALS (7 sets, daily range): BP systolic 131–138; BP diastolic 78–92
[~2023-03-03] VITALS: Ht 165.1 cm; Wt 85.0 kg
[~2023-03-03 08:54] MED LIST changes: +OMNICEF300 MG PO
[2023-03-03 09:42] LABS: BASO% 1.2 % (0-3); EOS% 3.3 % (0-8); HEMATOCRIT 41.2 % (39.0-50.0); HEMOGLOBIN 14.4 g/dl (14.0-18.0); IMMATURE GRANULOCYTES 0.4 % (0.0-5.0); LYMPH% 21.9 % (15-41); MEAN CELL VOLUME 98.8 fL CALC (80.0-100.0); MEAN CORPUSCULAR HGB 34.5 pG CALC (26.0-32.0); MONO% 9.8 % (2-13); NEUT# 5.43 thou/uL (1.82-7.42); NEUT% 63.4 % (42-76); RED BLOOD COUNT 4.17 mill/uL (4.70-6.10); RED CELL DISTRI WIDTH 12.9 % (11.5-15.5)
[2023-03-03 09:52] LABS: ALKALINE PHOSPHATASE 94 u/l (38-126); ANION GAP 14 (6-22 (CALC)); BILIRUBIN, TOTAL 0.6 mg/dL (0.2-1.3); BUN 4 mg/dL (9-20); BUN/CREATININE RATIO 7 (12-20 (CALC)); CARBON DIOXIDE 23 mmol/l (22-30); CHLORIDE 105 mmol/l (95-108); CREATININE 0.6 mg/dL (0.7-1.3); GFR FOR AFR.AMER. > 60 ML/MIN (>=60 (CALC)); GFR OTHER RACES > 60 ML/MIN (>=60 (CALC)); LIPASE 198 u/l (23-300); POTASSIUM 3.7 mmol/l (3.5-5.1); SGOT/AST 63 u/l (17-59); SODIUM 138 mmol/l (137-146)
[2023-03-03 09:53] LABS: ALBUMIN 4.2 g/dL (3.2-5.0); TOTAL PROTEIN 8.8 g/dL (6.3-8.2)
== END 2023-03-03 12:37 | disposition home or self-care (01) | DRG 556 ==
LOC: ED 08:54
PROVIDERS: Family Medicine
DX: M25.551 Pain in right hip (principal); R07.81 Pleurodynia; R73.9 Hyperglycemia, unspecified; E66.9 Obesity, unspecified; V49.50XA Passenger injured in collision with unspecified motor vehicles in traffic accident, initial encounter

== ENCOUNTER 2023-03-23 10:24 | Emergency (ER) | payer OTHER ==
[~2023-03-23] VITALS: Ht 165.1 cm; Wt 75.0 kg
[2023-03-23] MEDS ORDERED: NAPROXEN500 MG PO (13:19)
[2023-03-23] MEDS ORDERED: METHOCARBAMOL500 MG PO (13:19)
[2023-03-23 13:27] VITALS: BP 135/91
== END 2023-03-23 13:35 | disposition home or self-care (01) | DRG 561 ==
LOC: ED 10:24
DX: S22.42XD Multiple fractures of ribs, left side, subsequent encounter for fracture with routine healing (principal); V89.2XXD Person injured in unspecified motor-vehicle accident, traffic, subsequent encounter